=== PATIENT | female | born 1980 | race Caucasian/White ===

== ENCOUNTER 2017-01-13 13:56 | Emergency (ER) | payer MEDICAID ==
[~2017-01-13] VITALS: Ht 170.2 cm; Wt 99.8 kg
[2017-01-13 15:34] VITALS: BP 115/52
[2017-01-13] MEDS ORDERED: HYDROcodone-ACET 7.5/325MG TAB PO ONE (16:15)
== END 2017-01-13 16:38 | disposition home or self-care (01) ==
LOC: EDBD 13:56 → ER 13:56
DX: S82.832A Other fracture of upper and lower end of left fibula, initial encounter for closed fracture (principal); Z88.6 Allergy status to analgesic agent; W01.0XXA Fall on same level from slipping, tripping and stumbling without subsequent striking against object, initial encounter; Y93.89 Activity, other specified; Y99.8 Other external cause status; Y92.89 Other specified places as the place of occurrence of the external cause
CPT/HCPCS: 29515; 73590; 73610

== ENCOUNTER 2018-10-05 17:16 | Emergency (ER) | payer MEDICAID ==
[~2018-10-05] VITALS: Ht 160 cm; Wt 112.0 kg
[2018-10-05 17:47] VITALS: BP 154/92
[2018-10-05] MEDS ORDERED: HYDROcodone-ACET 10/325MG TAB PO ONE (19:15)
[2018-10-05] MEDS ORDERED: BACLOFEN 10 MG TAB PO ONE (19:15)
== END 2018-10-05 19:51 | disposition home or self-care (01) ==
LOC: ER 17:24
DX: M54.2 Cervicalgia (principal); M54.5 Low back pain; M62.830 Muscle spasm of back; Z87.442 Personal history of urinary calculi; Z88.6 Allergy status to analgesic agent; V49.49XA Driver injured in collision with other motor vehicles in traffic accident, initial encounter; Y93.I9 Activity, other involving external motion; Y92.488 Other paved roadways as the place of occurrence of the external cause; Y99.8 Other external cause status

== ENCOUNTER 2018-11-19 15:12 | Emergency (ER) | payer MEDICAID ==
[~2018-11-19] VITALS: Ht 160 cm; Wt 114.3 kg
[2018-11-19 15:53] VITALS: BP 163/94
[2018-11-19 15:57] LABS: Urine Bacteria NONE SEEN /hpf (None Seen); Urine Blood Negative /uL (Negative); Urine Specific Gravity 1.023 (1.001-1.035); Urine WBC 1 /hpf (0 - 5)
[2018-11-19] MEDS ORDERED: ACETAMINOPHEN/CODEINE#3 (300/30mg) TAB PO ONE (17:30)
[2018-11-19] MEDS ORDERED: KETOROLAC TROMETH 60MG/2ML VIAL IM ONE (17:30)
== END 2018-11-19 17:52 | disposition home or self-care (01) ==
LOC: ER 15:28
DX: M54.5 Low back pain (principal); G89.29 Other chronic pain; Z88.6 Allergy status to analgesic agent; Z87.442 Personal history of urinary calculi
CPT/HCPCS: 72070; 72100; 81001; 96372; 99284; J1885

== ENCOUNTER 2019-01-25 18:00 | Emergency (ER) | payer MEDICAID ==
[~2019-01-25] VITALS: Ht 160 cm; Wt 115.7 kg
[2019-01-25] MEDS ORDERED: cloNIDine HCL 0.1 MG TAB PO ONE (18:45)
[2019-01-25 19:27] VITALS: BP 128/91
== END 2019-01-25 19:41 | disposition home or self-care (01) ==
LOC: ER 18:04
DX: K12.0 Recurrent oral aphthae (principal); Z88.6 Allergy status to analgesic agent; Z87.442 Personal history of urinary calculi

== ENCOUNTER 2019-02-04 14:34 | Emergency (ER) | payer MEDICAID ==
[~2019-02-04] VITALS: Ht 160 cm; Wt 117.5 kg
[2019-02-04 14:37] VITALS: BP 155/85
== END 2019-02-04 16:56 | disposition home or self-care (01) ==
LOC: ER 14:36
DX: R20.0 Anesthesia of skin (principal); K21.9 Gastro-esophageal reflux disease without esophagitis; Z87.442 Personal history of urinary calculi; Z88.6 Allergy status to analgesic agent
CPT/HCPCS: 93971

== ENCOUNTER → 2019-07-25 | Outpatient (CLI) | payer MEDICAID ==
[~2019-07-25] VITALS: Ht 160 cm; Wt 121.1 kg
[~2019-07-25] MED LIST: ADENOSINE 102 MG in GIVE UN-DILUTED 0 ML IV ONE; ADENOSINE 90 MG/30 ML INJ IV ONE; APIX5TAB OR; BUSP5TAB51 PO; FER325T PO; METF-370 PO; PROM25TA5 PO; ROPI3TAB4 PO; SERT-274 PO; TRAM50TA2 PO
== END | disposition home or self-care (01) ==
LOC: Rad HDHVI 12:50
PROVIDERS: ATTEND Internal Medicine Cardiovascular Disease
DX: R06.02 Shortness of breath (principal); I10 Essential (primary) hypertension; E11.9 Type 2 diabetes mellitus without complications
CPT/HCPCS: 78452; 93005; 96374; 96375; A9500; J0153